=== PATIENT | female | born 1975 | race Caucasian/White ===

== ENCOUNTER 2022-01-11 07:58 | Emergency (ER) | payer MEDICAID ==
[~2022-01-11] VITALS: Ht 157.5 cm; Wt 65.8 kg
[2022-01-11 08:05] VITALS: BP 128/80
--- NOTE | 2022-01-11 08:25 | NUR ---
46YO FEMALE PT C/O 12/25 R LEG PAIN X2DAYS. PT STATES INJURING LEG WHILE GOING DOWN STAIRS AND HEARING A "CRACK". PT WAS SEEN IN URGENT CARE ON SATURDAY AND TOLD TO GET CHECK UP 2DAYS AFTER FOR MRI DUE TO TIBIA FRACTURE AND POSSIBLE TORN TENDON. STATES MILD RELIEF AFTER TAKING IBUPROFEN. NOTES NUMBING BELOW R KNEE, DENIES LOSS OF SENSATION .CAP REFILL <3 THROUGHOUT LEG. AMBULATORY USING CRUTCHES. PT AAOX4, RESPIRATIONS EVEN AND UNLABORED. MONEGASQUE SPEAKING HX:DIABETES NKA
--- NOTE | 2022-01-11 08:41 | NUR ---
MD EDWARDS AT BEDSIDE FOR EVALUATION
[2022-01-11] MEDS ORDERED: traMADol 50 MG TAB PO ONE (08:45)
--- NOTE | 2022-01-11 09:05 | NUR ---
XRAY AT BEDSIDE
[2022-01-11] MEDS ORDERED: TRAM50TA1 PO (09:22)
[2022-01-11 09:38] VITALS: BP 125/78
--- NOTE | 2022-01-11 09:38 | NUR ---
Patient discharged with v/s stable. Written and verbal after care instructions FOR MEDIAL HEAD GASTROCNEMIUS TEAR given and explained. Patient alert, oriented and verbalized understanding of instructions. Wheel Chair Assisted with to car. All questions addressed prior to discharge. ID band removed. Patient advised to follow up with PMD. Rx of TRAMADOL given. Opportunity to ask questions provided and answered.
--- NOTE | 2022-01-11 09:58 | NUR ---
The patient's care was reviewed and supervised by [facility], RN.
== END 2022-01-11 09:38 | disposition home or self-care (01) ==
LOC: MED 07:58
DX: S86.821A Laceration of other muscle(s) and tendon(s) at lower leg level, right leg, initial encounter (principal); Z79.899 Other long term (current) drug therapy; W10.8XXA Fall (on) (from) other stairs and steps, initial encounter; Y93.89 Activity, other specified; Y92.89 Other specified places as the place of occurrence of the external cause; Y99.8 Other external cause status
CPT/HCPCS: 73590; 99283; Q0092

== ENCOUNTER 2022-10-22 19:32 | Emergency (ER) | payer MEDICAID ==
[~2022-10-22] VITALS: Ht 157.5 cm; Wt 56.7 kg
[~2022-10-22 19:32] MED LIST: ASPI-1822 PO; CEPH-588 PO; INSU100S53 SC; LISI5TAB18 PO; METF-1139 PO; TRAM-748 PO
[2022-10-22 20:50] VITALS: BP 127/58; PULSE 90; RESP 17; TEMP 98; O2SAT 100
--- NOTE | 2022-10-22 20:50 | NUR ---
TO LOBBY A/W BED AMBULATORY
--- NOTE | 2022-10-22 22:15 | NUR ---
PT AMBULATES TO BED 3. DAUGHTER WITH PT
--- NOTE | 2022-10-22 22:30 | NUR ---
pt resting on bed. a/ox4. not in distress. on monitor. call light within reach and oriented. bed locked to lwest position. placed on moderate high back rest. daughter at bedside
--- NOTE | 2022-10-22 22:30 | NUR ---
ermd at bedside evaluating the pt.
[2022-10-22] MEDS ORDERED: ONDANSETRON 4 MG/2 ML VIAL IVP ONE (22:40)
[2022-10-22] MEDS ORDERED: NACL 0.9% 1,000 ML IV ONE (22:40)
[2022-10-22] MEDS ORDERED: MORPHINE SULFATE 4 MG/ML SYR IVP ONE (22:40)
[2022-10-22 22:50] LABS: BASOPHILS # (AUTO) 0.1 K/uL (0.00-0.22); BASOPHILS % (AUTO) 1.2 % (0.0-2.0); EOSINOPHILS % (AUTO) 0.3 % (0.0-4.0); HEMATOCRIT 36.4 % (36-48); HEMOGLOBIN 12.6 g/dL (12.0-16.0); LYMPHOCYTES # (AUTO) 1.6 K/uL (2.5-16.5); LYMPHOCYTES % (AUTO) 15.1 % (20.5-51.1); MEAN CORPUSCULAR HEMOGLOBIN 32 pg (27-31); MEAN CORPUSCULAR HGB CONC 35 g/dL (33-37); MEAN CORPUSCULAR VOLUME 92.9 fL (80-94); MONOCYTES # (AUTO) 0.8 K/uL (0.8-1.0); MONOCYTES % (AUTO) 7.2 % (1.7-9.3); NEUTROPHILS # (AUTO) 8.3 K/uL (1.8-7.7); NEUTROPHILS % (AUTO) 76.2 % (42.2-75.2); PLATELET COUNT (AUTO) 347 K/uL (140-450); RED BLOOD CELL COUNT(AUTO) 3.92 MIL/uL (4.20-5.40); RED CELL DISTRIBUTION WIDTH 13.1 % (11.6-13.7); WHITE BLOOD COUNT (AUTO) 10.9 K/uL (4.8-10.8)
[2022-10-22 22:56] LABS: APPEARANCE,URINE CLEAR (CLEAR); BILIRUBIN,URINE NEGATIVE (NEGATIVE); BLOOD, URINE 2+ (NEGATIVE); COLOR,URINE YELLOW (YELLOW); LEUKOCYTE ESTERASE ,URINE NEGATIVE (NEGATIVE); NITRITE, URINE POSITIVE (NEGATIVE); UGLUCOSE 3+ (NEGATIVE)
[2022-10-22 23:11] LABS: ALBUMIN 3.2 g/dL (3.4-5.0); ANION GAP 12.2 (8-16); CARBON DIOXIDE 27.7 mmol/L (21-32); CREATININE 0.7 mg/dL (0.6-1.3); POTASSIUM 3.9 mmol/L (3.5-5.1); TOTAL BILIRUBIN 0.9 mg/dL (0.0-1.0)
[2022-10-23] MEDS ORDERED: KETOROLAC 30 MG/ML VIAL IVP ONE (00:45)
[2022-10-23] MEDS ORDERED: cefTRIAXone 1,000 MG VIAL ONE (00:51)
--- NOTE | 2022-10-23 01:33 | NUR ---
pt resting on bed. a/ox4. not in distress. on monitor. call light within reach. bed locked to lwest position. placed on moderate high back rest. daughter at bedside
[2022-10-23] MEDS ORDERED: CEFD300C3 PO (02:55)
[2022-10-23] MEDS ORDERED: ONDA-188 SL (02:55)
[2022-10-23] MEDS ORDERED: IBUP-2213 PO (02:55)
[2022-10-23] MEDS ORDERED: HYDR-5043 PO (02:55)
--- NOTE | 2022-10-23 03:08 | NUR ---
blood sugar: 53, informed Dr. Caballero. Dr. Caballero verbalized to give pt a juice and sandwich
--- NOTE | 2022-10-23 03:09 | NUR ---
pt eating sandwich and drinking juice. tolerated well. with stable vital signs. not in distress. on monitor.
[2022-10-23 03:53] VITALS: BP 115/60; PULSE 90; RESP 23; TEMP 98; O2SAT 96
--- NOTE | 2022-10-23 03:53 | NUR ---
Patient discharged with v/s stable. Written and verbal after care instructions given and explained. Patient alert, oriented and verbalized understanding of instructions. Ambulatory with steady gait. All questions addressed prior to discharge. ID band removed. Patient advised to follow up with PMD. Rx given TO PT. Patient educated on indication of medication including possible reaction and side effects. Opportunity to ask questions provided and answered.
== END 2022-10-23 03:53 | disposition home or self-care (01) ==
LOC: MED 19:32
DX: N12 Tubulo-interstitial nephritis, not specified as acute or chronic (principal); R11.2 Nausea with vomiting, unspecified; J45.909 Unspecified asthma, uncomplicated; E11.9 Type 2 diabetes mellitus without complications; Z90.49 Acquired absence of other specified parts of digestive tract; Z98.890 Other specified postprocedural states; Z79.899 Other long term (current) drug therapy; Z79.1 Long term (current) use of non-steroidal anti-inflammatories (NSAID); Z79.82 Long term (current) use of aspirin; Z79.2 Long term (current) use of antibiotics
CPT/HCPCS: 36415; 74176; 80053; 81001; 81025; 82948; 83690; 85025; 87040; 87086; 93005; 96361; 96365; 96375; 99285; J0696; J1885; J2270; J2405; J7030

== ENCOUNTER 2023-12-13 00:40 | Emergency (ER) | payer MEDICAID ==
[~2023-12-13] VITALS: Ht 160 cm; Wt 54.4 kg
[~2023-12-13 00:40] MED LIST changes: +CEFD300C3 PO; +HYDR-5043 PO; +IBUP-2213 PO; +ONDA-188 SL
[2023-12-13 00:45] VITALS: BP 139/62; PULSE 82; RESP 22; TEMP 97.8; O2SAT 99
[2023-12-13 01:11] LABS: APPEARANCE,URINE CLEAR (CLEAR); BILIRUBIN,URINE NEGATIVE (NEGATIVE); BLOOD, URINE 3+ (NEGATIVE); COLOR,URINE YELLOW (YELLOW); LEUKOCYTE ESTERASE ,URINE NEGATIVE (NEGATIVE); NITRITE, URINE NEGATIVE (NEGATIVE); PROTEIN,URINE 2+ (NEGATIVE); UGLUCOSE 3+ (NEGATIVE); UROBILINOGEN,URINE 0.2 EU/dL (0.2 - 1)
[2023-12-13 01:13] LABS: RBC,URINE TOO NUMEROUS TO COUN /HPF (0-5); WBC,URINE 0-5 /HPF (0-5)
[2023-12-13 01:14] LABS: BACTERIA,URINE FEW /HPF (None Seen); MUCUS,URINE 1+ /LPF (None Seen); SQUAMOUS EPITHELIAL CELL,UR 0-3 (FEW) /LPF (0-3 (FEW))
[2023-12-13] MEDS: NACL 0.9% 1,000 ML IV SCH (01:40)
[2023-12-13] MEDS: ONDANSETRON 4 MG/2 ML VIAL IVP ONE (01:43)
[2023-12-13 01:44] LABS: BASOPHILS % (AUTO) 0.2 % (0.0-2.0); HEMATOCRIT 39.2 % (36-48); HEMOGLOBIN 13.5 g/dL (12.0-16.0); LYMPHOCYTES # (AUTO) 0.7 K/uL (2.5-16.5); LYMPHOCYTES % (AUTO) 25.6 % (20.5-51.1); MEAN CORPUSCULAR HEMOGLOBIN 32 pg (27-31); MEAN CORPUSCULAR HGB CONC 34 g/dL (33-37); MEAN CORPUSCULAR VOLUME 91.9 fL (80-94); MONOCYTES % (AUTO) 0.7 % (1.7-9.3); NEUTROPHILS % (AUTO) 72.5 % (42.2-75.2); PLATELET COUNT (AUTO) 207 K/uL (140-450); RED BLOOD CELL COUNT(AUTO) 4.26 MIL/uL (4.20-5.40); RED CELL DISTRIBUTION WIDTH 14.1 % (11.6-13.7); WHITE BLOOD COUNT (AUTO) 2.7 K/uL (4.8-10.8)
[2023-12-13] MEDS: KETOROLAC 30 MG/ML VIAL IVP ONE (01:45)
[2023-12-13 01:52] LABS: ANION GAP 16.1 (8-16); CARBON DIOXIDE 25.1 mmol/L (21-32); CREATININE 1.1 mg/dL (0.6-1.3); POTASSIUM 3.2 mmol/L (3.5-5.1)
[2023-12-13 01:58] LABS: ALBUMIN 3.6 g/dL (3.4-5.0); BILIRUBIN,DIRECT 0.1 mg/dL (0.0-0.3); TOTAL BILIRUBIN 0.7 mg/dL (0.0-1.0); TOTAL PROTEIN, SERUM 7.1 g/dL (6.4-8.2)
[2023-12-13] MEDS ORDERED: CIPR500T4 PO (02:38)
[2023-12-13] MEDS ORDERED: ONDA8TAB87 PO (02:38)
[2023-12-13] MEDS ORDERED: IBUP-2213 PO (02:38)
[2023-12-13] MEDS ORDERED: ACET-8905 PO (02:38)
[2023-12-13] MEDS: MORPHINE SULFATE 4 MG/ML SYR IVP ONE (02:48)
[2023-12-13 03:30] VITALS: BP 122/65; PULSE 84; RESP 16; TEMP 98; O2SAT 97
== END 2023-12-13 03:30 | disposition home or self-care (01) ==
LOC: MED 00:40
DX: N12 Tubulo-interstitial nephritis, not specified as acute or chronic (principal); J45.909 Unspecified asthma, uncomplicated; E11.9 Type 2 diabetes mellitus without complications; Z90.49 Acquired absence of other specified parts of digestive tract; Z98.890 Other specified postprocedural states; Z79.899 Other long term (current) drug therapy; Z79.82 Long term (current) use of aspirin
CPT/HCPCS: 36415; 74176; 80048; 80076; 81001; 81025; 83690; 85025; 96361; 96374; 96375; 99285; J1885; J2270; J2405; J7030